=== PATIENT | male | born 1960 | race Caucasian/White ===

== ENCOUNTER → 2016-06-21 | Outpatient (CLI) | payer MEDICAID ==
[~2016-06-21] MED LIST: ASP81CT PO; ASPI-983 PO; ATOR40TA PO; BACL10TA PO; BUSP10TA95 PO; CALC500T7 PO; CARV25TA PO; CARV6.252; CEFU500T PO; CELE200C PO; CITA20TA12 PO; CITA20TA4 PO; CITA20TA7 PO; CITA40TA11; DOXY100C42 PO; FENO145T2 PO; FLUT12AE4 IH; GABA-488 PO; HYDR-1231 PO; HYDR-3816 PO; HYDR-757 PO; LEVO750T9 PO; LISI-552 PO; LISI-596 PO; LORA0.5T; METF500T4 PO; METF500T8 PO; METH4TAB PO; METH500T PO; MTF500T PO; OLAN10TA19 PO; OLAN10TA3 GT; OLAN20TA3 PO; OMEP10CA4 PO; OMEP20CA12 PO; PANT40SU PO; PRD20T PO; PREG100C; PREG150C PO; PREG50CA2; RT-ALBUINH IH; SIMV40TA4 PO; TIZA2CAP9 PO; TRAM-21 PO; TRAM50TA2 PO; TRAZ-144 PO; TRZ100T PO
--- OUTSIDE RECORDS SUMMARY | 2016-06-21 13:05 | XMS REPORT | Continuity of Care Document ---
Author Author [facility] Organization [facility] Address Unknown Phone Unavailable Care Team Providers Care Supervisor Dry Cleaning Name Role Phone NO, LOCAL PHYSICIAN PCP Unavailable Insurance Providers Payer Name Policy Number Subscriber Name Relationship Self Pay Santiago Collier 18 Self / Same As Patient Advance Directives Directive Response Recorded Date/Time Advance Directives No 08/15/14 11:38pm Health Care Power of Hop Sorter No 08/15/14 11:38pm Organ Donor No 08/15/14 11:38pm Resuscitation Status Full Code 08/15/14 11:38pm Chief Complaint and Reason for Visit Chief Complaint CHEST PAIN Reason for Visit Chest pain Problems Medical Problems Problem Onset Date Status Lumbar radiculopathy Unknown Active Chest pain Unknown Active Medications Medication Dose Route Sig Days/Qty Instructions Order Date Discontinued Date Status Metformin HCl (Glucophage) 500 Mg PO FOUR TIMES DAILY 05/18/1408/16 Discontinued Lisinopril 20 Mg PO DAILY 05/18/14 Active Fenofibrate 145 Mg PO DAILY 05/18/14 08/16/14 Discontinued Trazodone Hcl 100 Mg PO DAILY 05/18/14 08/16/14 Discontinued Olanzapine 10 Mg GT 05/18/14 08/16/14 Discontinued Omeprazole 20 Mg PO DAILY 30 Qty 05/18/14 08/16/14 Discontinued Celecoxib 200 Mg PO 05/18/14 08/16/14 Discontinued Citalopram Hydrobromide 20 Mg PO 05/18/14 08/16/14 Discontinued Prednisone 40 Mg PO DAILY 5 Days 05/18/14 08/15/14 Discontinued Hydrocodone Bit/Acetaminophen 1-2 Tab PO EVERY 6 HOURS PRN PAIN 20 Qty 05/18/14 08/15/14 Discontinued Tramadol Hcl 50 Mg PO EVERY 6 HOURS PRN PAIN 08/15/14 08/16/14 Discontinued Gabapentin 600 Mg PO THREE TIMES A DAY TAKES 2 (300MG) CAPSULES Active Metformin Hcl 1,000 Mg PO TWICE A DAY 08/16/14 Active Trazodone Hcl 150 Mg PO BEDTIME TAKES 1 & 1/2 (100MG) TABLET 08/16/14 Active Citalopram Hydrobromide 30 Mg PO DAILY 08/16/14 Active Tramadol Hcl 50 Mg PO EVERY 12 HOURS PRN PAIN 08/16/14 Active Olanzapine 5 Mg PO BEDTIME TAKES 1/2 (10MG) TABLET 08/16/14 Active Simvastatin 40 Mg PO BEDTIME 08/16/14 Active Social History Social History Problem Response Recorded Date/Time Alcohol Use Denies Use 08/15/2014 11:38pm Recreational Drug Use No 08/15/2014 11:38pm Recent Foreign Travel No 08/15/2014 11:38pm Recent Infectious Disease Exposure No 08/15/2014 11:38pm Hospitalization with Isolation Denies 08/16/2014 8:57pm Sexually Transmitted Disease No 08/15/2014 11:38pm HIV/AIDS No 08/15/2014 11:38pm Smoking Status Current Everyday Smoker 08/15/2014 11:38pm Do you dip or chew tobacco? No 08/15/2014 11:38pm Query Response Start Date Stop Date Smoking Status Current Everyday Smoker Hospital Discharge Instructions Patient Instructions Physician Instructions Goal/Follow Up Appt: You will have an outpatient stress test by Dr. Hsieh on 08-16-14. Arrive a little before 12:00. Nothing to eat or drink after midnight. No caffeine or nicotine for at least 12 hours. Follow up with Kristie Schultz APRN as outpatient in 1 week. Discharge Diet: ADA Diet, Low Fat/Low Cholesterol Plan of Care Discharge Date 08/16/14 4:15pm Disposition 01 HOME, SELF-CARE Instructions/Education Provided Chest Pain (DC) Cigarette Smoking and Its Health Risks (GEN) Forms Provided PDI Medical Prescriptions See Medications Section Referrals KRISTIE SCHULTZ [place] (Unspecified) 1 Week Address: [facility] [address] [address] Reason(s) for Referral: Please call and make an appointment in 1 week. Functional Status Query Response Date Recorded Comprehension Ability Understands Concepts August 16, 2014 9:00am Allergies, Adverse Reactions, Alerts Allergen Type Severity Reaction Status Last Updated NSAIDS (Non-Steroidal Anti-Inflammatory Drug) ([id number]) Allergy Unknown Active 05/18/14 Calcium Channel Blocking Agent Diltiazem Analogues ([id number]) Adverse Reaction Intermediate CHEST PAIN Active 08/16/14 Immunizations Name Given Type Hepatitis A No Historical Hepatitis B No Historical Tetanus Booster (TDap) Unknown Historical influenza, split (incl. purified surface antigen) 08/16/14 Administered pneumococcal polysaccharide PPV23 08/16/14 Administered influenza, split (incl. purified surface antigen) 08/16/14 Administered pneumococcal polysaccharide PPV23 08/16/14 Administered Vital Signs Acute Vital Signs Vital Response Date/Time Temperature (Fahrenheit) 98.1 degrees F (97.6 - 99.5) Temperature (Calculated Celsius) 36.25398 degrees C (36.4 - 37.5) Temperature Source Temporal Pulse Rate (adult) 80 bpm (60 - 90) Respiratory Rate 20 bpm (12 - 24) O2 Sat by Pulse Oximetry 96 % (88 - 100) Blood Pressure 163/111 mm Hg Pain Pain Intensity 7 Height (Feet) 5 feet Height (Inches) 10.00 inches Height (Calculated Centimeters) 177.964991 cm Weight (Pounds) 220 pounds Weight (Ounces) 0.0 oz Weight (Calculated Grams) 71170.322 gm Weight (Calculated Kilograms) 99.397151 kilograms Calculated BMI 31.56 Results Laboratory Results Test Name Result Units Flags Reference Collection Date/Time Result Date/ Time Comments White Blood Count 11.1 10^3/uL H 4.3-11.0 08/15/2014 10:00pm 08/15/2014 10:08pm Red Blood Count 5.18 10^6/uL 4.35-5.85 08/15/2014 10:00pm 08/15/2014 10 :08pm Hemoglobin 14.9 G/DL 13.3-17.7 08/15/2014 10:00pm 08/15/2014 10:08pm Hematocrit 44 % 40-54 08/15/2014 10:00pm 08/15/2014 10:08pm Mean Corpuscular Volume 85 FL 80-99 08/15/2014 10:00pm 08/15/2014 10: 08pm Mean Corpuscular Hemoglobin 29 PG 25-34 08/15/2014 10:00pm 08/15/2014 10:08pm Mean Corpuscular Hemoglobin Concent 34 G/DL 32-36 08/15/2014 10:00pm 10:08pm Red Cell Distribution Width 13.3 % 10.0-14.5 08/15/2014 10:00pm 2014 10:08pm Platelet Count 194 10^3/uL 130-400 08/15/2014 10:00pm 08/15/2014 10: 08pm Mean Platelet Volume 9.8 FL 7.4-10.4 08/15/2014 10:00pm 08/15/2014 10: 08pm Neutrophils (%) (Auto) 50 % 42-75 08/15/2014 10:00pm 08/15/2014 10: 08pm Lymphocytes (%) (Auto) 32 % 12-44 08/15/2014 10:00pm 08/15/2014 10: 08pm Monocytes (%) (Auto) 7 % 0-12 08/15/2014 10:00pm 08/15/2014 10:08pm Eosinophils (%) (Auto) 11 % H 0-10 08/15/2014 10:00pm 08/15/2014 10:08pm Basophils (%) (Auto) 0 % 0-10 08/15/2014 10:00pm 08/15/2014 10:08pm Neutrophils # (Auto) 5.5 X 10^3 1.8-7.8 08/15/2014 10:00pm 08/15/2014 10:08pm Lymphocytes # (Auto) 3.6 X 10^3 1.0-4.0 08/15/2014 10:00pm 08/15/2014 10:08pm Monocytes # (Auto) 0.8 X 10^3 0.0-1.0 08/15/2014 10:00pm 08/15/2014 10: 08pm Eosinophils # (Auto) 1.3 10^3/uL H 0.0-0.3 08/15/2014 10:00pm 08/15/2014 10:08pm Basophils # (Auto) 0.0 10^3/uL 0.0-0.1 08/15/2014 10:00pm 08/15/2014 10 :08pm Prothrombin Time 11.7 SEC L 12.2-14.7 08/15/2014 10:00pm 08/15/2014 10: 21pm INR Comment 0.9 0.8-1.4 08/15/2014 10:00pm 08/15/2014 10:21pm INTERPRETIVE DATA SUGGESTED THERAPEUTIC RANGE FOR INR'S: VENOUS THROMBOSIS, PULMONARY EMBOLISM, OR PREVENTION OF SYSTEMIC EMBOLISM (EG. IN ATRIAL FIBRILLATION): 2.0 - 3.0 MECHANICAL PROSTHETIC HEART VALVES: 2.5 - 3.5* *NOTE: INR'S UP TO 4.5 MAY BE NECESSARY IN SELECTED GROUPS OF HIGH RISK PATIENTS. [employer] CONSENSUS CONFERENCE ON ANTITHROMBOTIC THERAPY (2000). Activated Partial Thromboplast Time 56 SEC H 24-35 08/16/2014 9:40am 10:25am Sodium Level 140 MMOL/L 135-145 08/15/2014 10:00pm 08/15/2014 10:38pm Potassium Level 3.8 MMOL/L 3.6-5.0 08/15/2014 10:00pm 08/15/2014 10: 38pm Chloride Level 106 MMOL/L 98-107 08/15/2014 10:00pm 08/15/2014 10:38pm Carbon Dioxide Level 22 MMOL/L 21-32 08/15/2014 10:00pm 08/15/2014 10: 38pm Blood Urea Nitrogen 18 MG/DL 7-18 08/15/2014 10:00pm 08/15/2014 10: 38pm Creatinine 1.02 MG/DL 0.60-1.30 08/15/2014 10:00pm 08/15/2014 10:38pm BUN/Creatinine Ratio 18 08/15/2014 10:00pm 08/15/2014 10:38pm Estimat Glomerular Filtration Rate > 60 08/15/2014 10:00pm 2014 10:38pm GFR INTERPRETIVE DATA UNITS FOR ESTIMATED GFR (eGFR): mL/min/1.73 M2 REFERENCE RANGE FOR ESTIMATED GFR (eGFR) eGFR NORMAL eGFR >60 MODERATELY DECREASED eGFR 30-59 SEVERLY DECREASED eGFR 15-29 KIDNEY FAILURE <15 (OR DIALYSIS) Glucose Level 155 MG/DL H 70-105 08/15/2014 10:00pm 08/15/2014 10:38pm Glucometer 260 MG/DL H 70-110 08/16/2014 8:31am 08/16/2014 8:38am Calcium Level 9.5 MG/DL 8.5-10.1 08/15/2014 10:00pm 08/15/2014 10:38pm Magnesium Level 1.9 MG/DL 1.8-2.4 08/15/2014 10:00pm 08/15/2014 10: 38pm Total Bilirubin 0.3 MG/DL 0.1-1.0 08/15/2014 10:00pm 08/15/2014 10: 38pm Alkaline Phosphatase 79 U/L 40-136 08/15/2014 10:00pm 08/15/2014 10: 38pm Aspartate Amino Transf (AST/SGOT) 12 U/L 5-34 08/15/2014 10:00pm 2014 10:38pm Alanine Aminotransferase (ALT/SGPT) 21 U/L 0-55 08/15/2014 10:00pm 10:38pm Total Creatine Kinase 31 U/L 30-200 08/16/2014 9:40am 08/16/2014 10: 16am Creatine Kinase MB 0.6 NG/ML <6.6 08/16/2014 9:40am 08/16/2014 10:24am Troponin I < 0.30 NG/ML <0.30 08/16/2014 9:40am 08/16/2014 10:24am Troponin I < 0.30 NG/ML <0.30 08/15/2014 10:00pm 08/15/2014 10:38pm Myoglobin 20.2 NG/ML 10.0-92.0 08/15/2014 10:00pm 08/15/2014 10:38pm Total Protein 6.7 G/DL 6.4-8.2 08/15/2014 10:00pm 08/15/2014 10:38pm Albumin 4.0 G/DL 3.2-4.5 08/15/2014 10:00pm 08/15/2014 10:38pm Triglycerides Level 497 MG/DL H <150 08/16/2014 3:37am 08/16/2014 5:56am Cholesterol Level 181 MG/DL < 200 08/16/2014 3:37am 08/16/2014 5:56am HDL Cholesterol 29 MG/DL L 40-60 08/16/2014 3:37am 08/16/2014 5:56am LDL Cholesterol Direct 94 MG/DL 1-129 08/16/2014 3:37am 08/16/2014 5: 56am VLDL Cholesterol 99 MG/DL H 5-40 08/16/2014 3:37am 08/16/2014 5:56am Procedures Procedure Status Date Provider(s) Tracing only of electrocardiogram completed 08/15/14 SOPHIA GUNN MD Tracing only of electrocardiogram completed 08/16/14 AMOR MISHRA MD Tracing only of electrocardiogram completed 08/16/14 AMOR MISHRA MD Encounters Encounter Location Date/Time Discharged Inpatient Via [facility] 08/15/14 11:38pm Recent Diagnosis Chest pain
[2016-06-21 13:30] LABS: ANION GAP 10 MMOL/L (5-14); BLOOD UREA NITROGEN 17 MG/DL (7-18); BUN/CREATININE RATIO 18; CALCIUM 9.5 MG/DL (8.5-10.1); CARBON DIOXIDE 23 MMOL/L (21-32); CHLORIDE 103 MMOL/L (98-107); CREATININE SERUM 0.96 MG/DL (0.60-1.30); GFR ESTIMATED > 60; GLUCOSE 131 MG/DL (70-105); SODIUM 136 MMOL/L (135-145)
== END ==
LOC: LAB 13:00
PROVIDERS: ATTEND Nurse Practitioner Family
DX: I25.10 Atherosclerotic heart disease of native coronary artery without angina pectoris (principal); I25.5 Ischemic cardiomyopathy; I12.9 Hypertensive chronic kidney disease with stage 1 through stage 4 chronic kidney disease, or unspecified chronic kidney disease; N18.2 Chronic kidney disease, stage 2 (mild); E78.4 Other hyperlipidemia
CPT/HCPCS: 36415; 80048

== ENCOUNTER → 2016-11-29 | Outpatient (CLI) | payer MEDICAID ==
[2016-11-29 08:52] LABS: ALANINE AMINOTRANSFERASE 28 U/L (0-55); ALBUMIN 4.2 GM/DL (3.2-4.5); ANION GAP 8 MMOL/L (5-14); ASPARTATE AMINO TRANSFERASE 21 U/L (5-34); BILIRUBIN,TOTAL 0.5 MG/DL (0.1-1.0); BLOOD UREA NITROGEN 11 MG/DL (7-18); BUN/CREATININE RATIO 11; CALCIUM 9.7 MG/DL (8.5-10.1); CARBON DIOXIDE 27 MMOL/L (21-32); CHLORIDE 101 MMOL/L (98-107); CHOLESTEROL 187 MG/DL (< 200); DIRECT LDL 111 MG/DL (1-129); GFR ESTIMATED > 60; GLUCOSE 145 MG/DL (70-105); POTASSIUM 4.6 MMOL/L (3.6-5.0); SODIUM 136 MMOL/L (135-145); TOTAL PROTEIN 7.3 GM/DL (6.4-8.2); TRIGLYCERIDES 277 MG/DL (<150); VLDL CHOLESTEROL 55 MG/DL (5-40)
== END ==
LOC: LAB 08:19
PROVIDERS: ATTEND Nurse Practitioner Family
DX: I25.10 Atherosclerotic heart disease of native coronary artery without angina pectoris (principal); I25.5 Ischemic cardiomyopathy; I10 Essential (primary) hypertension; E78.4 Other hyperlipidemia
CPT/HCPCS: 36415; 80053; 80061

== ENCOUNTER 2017-04-15 10:43 | Emergency (ER) | payer MEDICARE, MEDICAID ==
[~2017-04-15] VITALS: Ht 177.8 cm; Wt 90.7 kg
--- OUTSIDE RECORDS SUMMARY | 2017-04-15 10:50 | XMS REPORT ---
Author Author MATTIE SOMERS Organization [employer] Address Unknown Phone Unavailable Care Team Providers Care Client Technologies Analyst Name Role Phone MATTIE SOMERS CP Unavailable Allergies No Known Allergies Problems Problem Type Condition Code Onset Dates Condition Status Problem Obesity, unspecified 278.00 Active Problem Routine general medical examination at health care facility V70.0 Active Problem Essential hypertension, benign 401.1 Active Problem Unspecified dental caries 521.00 Active Problem Lumbago 724.2 Active Problem Generalized osteoarthrosis, unspecified site 715.00 Active Problem Pain in joint, shoulder region 719.41 Active Problem Dizziness and giddiness 780.4 Active Problem Other and unspecified hyperlipidemia 272.4 Active Problem Diabetes mellitus without mention of complication, type II or unspecified type, not stated as uncontrolled 250.00 Active Problem Degeneration of lumbar or lumbosacral intervertebral disc 722.52 Active Problem Morbid obesity 278.01 Active Medications No Known Medications Results No Known Results Summary Purpose [employer] Submission
[2017-04-15] MEDS ORDERED: SIMV40TA4 (11:12)
[2017-04-15] MEDS ORDERED: PROVENTIL (11:12)
[2017-04-15] MEDS ORDERED: METF1000 (11:12)
--- NOTE | 2017-04-15 11:49 | Diagnostic Imaging Report ---
EXAM: CT head. TECHNIQUE: Noncontrast axial images of the brain were obtained. INDICATION: Headache with double vision. FINDINGS: There is no intracranial hemorrhage, edema or mass effect. The brain parenchyma appears unremarkable. No hydrocephalus. The visualized portions of the orbits and paranasal sinuses appear unremarkable except for a 1.3 cm right maxillary sinus mucous attention cyst. IMPRESSION: No acute process. Dictated by: Dictated on workstation # [id number]
--- NOTE | 2017-04-15 11:52 | ED Neurological Problem ---
General Chief Complaint: Eye Problems Stated Complaint: BLURRED,DOUBLE VISION Nursing Triage Note: BLURRED ET DOUBLE VISION SINCE ABOUT A WEEK AGO. STATES HAD H/A WITH BLURRED VISION. HX OF SEVERE MIGRAINE. CARDIAC HX. NO OTHER DEFICITS, NO WEAKNESS, NO NUMBNESS, NO VISUAL FIELD DEVIATION. Nursing Sepsis Screen: No Definite Risk Source: patient Exam Limitations: no limitations History of Present Illness Time seen by provider: 11:35 Initial Comments Here with complaint of vision changes over the last 5 days. Apparently this started with a severe headache 5 days ago that they're describing as a severe migraine that was associated with blurred vision, vomiting and diaphoresis. That did clear over time but the vision problems seems to have progressed. Now his eyes are crossing and he has decreased movement of the right eye. Denies recent injury. Does have fairly significant diabetes as well as heart failure. Timing/Duration: other (progressively worsening over the last 5 days) Severity: moderate Associated Symptoms: No confusion, No fever/chills, No loss of consciousness, No nausea/vomiting, No numbness in legs/feet, No seizures, No slurred speech, No trouble walking, vision changes Allergies and Home Medications Allergies Coded Allergies: NSAIDS (Non-Steroidal Anti-Inflamma (Unverified Allergy, Unknown, 05/18/14 ) Tricyclic Compounds (Verified Allergy, Unknown, 04/04/15) amitriptyline (Verified Allergy, Unknown, 04/04/15) trazodone (Verified Allergy, Unknown, 01/31/15) Calcium Channel Blocking Agent Dilt (Unverified Adverse Reaction, Intermediate, CHEST PAIN, 08/16/14) Home Medications Aspirin 81 Mg Tablet.dr, 81 MG PO DAILY, (Reported) Carvedilol 25 Mg Tablet, 25 MG PO BID, (Reported) Lisinopril 20 Mg Tablet, 20 MG PO BID, (Reported) Metformin HCl 1,000 Mg Tablet, (Reported) Simvastatin 40 Mg Tablet, (Reported) [Proventil] , (Reported) Constitutional: see HPI, No chills, No fever Eyes: See HPI, Denies Pain, Vision Changes, Other (double vision) Ears, Nose, Mouth, Throat: see HPI Respiratory: no symptoms reported Cardiovascular: no symptoms reported Gastrointestinal: No abdominal pain, No nausea, No vomiting Genitourinary: no symptoms reported Musculoskeletal: no symptoms reported Psychiatric/Neurological: See HPI All Other Systems Reviewed Negative Unless Noted: Yes Past Czkkvwu-Kujzfo-Cqknpr Hx Patient Social History Alcohol Use: Denies Use Recreational Drug Use: No Smoking Status: Current Everyday Smoker Type Used: Cigarettes Recent Foreign Travel: No Contact w/Someone Who Travel: No Recent Infectious Disease Expo: No Recent Hopitalizations: No Immunizations Up To Date Tetanus Booster (TDap): Unknown PED Vaccines UTD: Yes Seasonal Allergies Seasonal Allergies: No Surgeries History of Surgeries: Yes (TRIPLE BYPASS 08/14, low back surgery) Surgeries: Adenoidectomy, Cardiac, CABG, Defibrillator, Pacemaker, Tonsillectomy Respiratory History of Respiratory Disorde: Yes Respiratory Disorders: COPD Cardiovascular History of Cardiac Disorders: Yes Cardiac Disorders: Cardiomyopathy, Coronary Artery Disease, Heart Attack, High Cholesterol, Hypertension Neurological History of Neurological Disord: Yes Neurological Disorders: Headaches /Migraines, Neuropathy Reproductive System Hx Reproductive Disorders: No Sexually Transmitted Disease: No HIV/AIDS: No Genitourinary History of Genitourinary Disor: No Gastrointestinal History of Gastrointestinal Di: Yes Gastrointestinal Disorders: Gastroesophageal Reflux, Chronic Diarrhea Musculoskeletal History of Musculoskeletal Dis: Yes Musculoskeletal Disorders: Degenerate Disk Disease, Arthritis, Chronic Back Pain Endocrine History of Endocrine Disorders: Yes Endocrine Disorders: Diabetes, Non-Insulin dep HEENT Loss of Vision: Denies Hearing Impairment: Denies Cancer History of Cancer: No Psychosocial History of Psychiatric Problem: Yes Behavioral Health Disorders: Anxiety, Depression Integumentary History of Skin or Integumenta: No Blood Transfusions History of Blood Disorders: No Adverse Reaction to a Blood Tr: No Reviewed Nursing Assessment Reviewed/Agree w Nursing PMH: Yes Family Medical History Family Medial History: Myocardial infarction 18 FATHER G8 SISTER Physical Exam Vital Signs Vital Sign - Last 12Hours 04/15/17 11:06 Temp 98.2 Pulse 71 Resp 18 B/P (MAP) 163/95 Pulse Ox 96 O2 Delivery Room Air Capillary Refill : Less Than 3 Seconds General Appearance: WD/WN, no apparent distress HEENT: PERRL/EOMI, pharynx normal, other (pupils are equal and reactive bilaterally. Has eye movements in all directions except for right eye has decrease movement laterally which is isolated to this eye) Neck: full range of motion, supple Respiratory: lungs clear, normal breath sounds Cardiovascular: regular rate, rhythm, no murmur Peripheral Pulses: 2+ Dorsalis Pedis (R), 2+ Left Dors-Pedis (L), 2+ Radial Pulses (R), 2+ Radial Pulses (L) Gastrointestinal: non tender, soft Extremities: non-tender, normal inspection Neurologic/Psychiatric: alert, oriented x 3 Crainal Nerves: normal hearing, normal speech, abnormal eye position (right) Coordination/Gait: normal gait Motor/Sensory: no sensory deficit (which was) Skin: normal color, warm/dry Progress/Results/Core Measures Results/Orders Lab Results Laboratory Tests Test 04/15/17 11:44 04/15/17 12:06 Range/Units White Blood Count 9.4 4.3-11.0 10^3/uL Red Blood Count 6.11 H 4.35-5.85 10^6/uL Hemoglobin 17.3 13.3-17.7 G/DL Hematocrit 51 40-54 % Mean Corpuscular Volume 83 80-99 FL Mean Corpuscular Hemoglobin 28 25-34 PG Mean Corpuscular Hemoglobin Concent 34 32-36 G/DL Red Cell Distribution Width 13.6 10.0-14.5 % Platelet Count 193 130-400 10^3/uL Mean Platelet Volume 11.0 H 7.4-10.4 FL Neutrophils (%) (Auto) 50 42-75 % Lymphocytes (%) (Auto) 38 12-44 % Monocytes (%) (Auto) 8 0-12 % Eosinophils (%) (Auto) 5 0-10 % Basophils (%) (Auto) 0 0-10 % Neutrophils # (Auto) 4.7 1.8-7.8 X 10^3 Lymphocytes # (Auto) 3.6 1.0-4.0 X 10^3 Monocytes # (Auto) 0.7 0.0-1.0 X 10^3 Eosinophils # (Auto) 0.4 H 0.0-0.3 10^3/uL Basophils # (Auto) 0.0 0.0-0.1 10^3/uL Prothrombin Time 12.4 12.2-14.7 SEC INR Comment 0.9 0.8-1.4 Activated Partial Thromboplast Time 31 24-35 SEC D-Dimer 0.49 0.00-0.49 UG/ML Urine Color YELLOW Urine Clarity CLEAR Urine pH 6 5-9 Urine Specific [place] 1.010 L 1.016-1.022 Urine Protein 1+ H NEGATIVE Urine Glucose (UA) NEGATIVE NEGATIVE Urine Ketones NEGATIVE NEGATIVE Urine Nitrite NEGATIVE NEGATIVE Urine Bilirubin NEGATIVE NEGATIVE Urine Urobilinogen NORMAL NORMAL MG/DL Urine Leukocyte Esterase NEGATIVE NEGATIVE Urine RBC (Auto) NEGATIVE NEGATIVE Urine RBC NONE /HPF Urine WBC NONE /HPF Urine Squamous Epithelial Cells 0-2 /HPF Urine Crystals NONE /LPF Urine Bacteria NEGATIVE /HPF Urine Casts NONE /LPF Urine Mucus NEGATIVE /LPF Urine Culture Indicated NO Sodium Level 139 135-145 MMOL/L Potassium Level 4.2 3.6-5.0 MMOL/L Chloride Level 105 98-107 MMOL/L Carbon Dioxide Level 24 21-32 MMOL/L Anion Gap 10 5-14 MMOL/L Blood Urea Nitrogen 11 7-18 MG/DL Creatinine 1.01 0.60-1.30 MG/DL Estimat Glomerular Filtration Rate > 60 BUN/Creatinine Ratio 11 Glucose Level 157 H 70-105 MG/DL Calcium Level 10.1 8.5-10.1 MG/DL Total Bilirubin 0.5 0.1-1.0 MG/DL Aspartate Amino Transf (AST/SGOT) 17 5-34 U/L Alanine Aminotransferase (ALT/SGPT) 23 0-55 U/L Alkaline Phosphatase 110 40-136 U/L Troponin I < 0.30 <0.30 NG/ML Total Protein 7.7 6.4-8.2 GM/DL Albumin 4.5 3.2-4.5 GM/DL Glucometer 140 H 70-110 MG/DL My Orders Orders - AUBREE MONTERO MD Cbc With Automated Diff (04/15/17 11:28) Protime With Inr (04/15/17 11:28) Partial Thromboplastin Time (04/15/17 11:28) Comprehensive Metabolic Panel (04/15/17 11:28) Fibrin Degradation Products (04/15/17 11:28) Troponin I (04/15/17 11:28) Ua Culture If Indicated (04/15/17 11:28) Chest 1 View, Ap/Pa Only (04/15/17 11:28) Ekg Tracing (04/15/17 11:28) Nothing By Mouth (04/15/17 Dinner) Accucheck Stat ONCE (04/15/17 11:28) Saline Lock/Iv-Start (04/15/17 11:28) Vital Signs - Stroke Q15M (04/15/17 11:28) Ct Head Wo-R/O Stroke (04/15/17 11:28) O2 (04/15/17 11:28) Intake & Output 06,14,22 (04/15/17 11:28) Monitor-Rhythm Ecg Trace Only (04/15/17 11:28) Dysphagia Screening Tool (04/15/17 11:28) Ct Angio Head/Neck (04/15/17 14:06) Hs C Reactive Protein (04/15/17 16:09) Erythrocyte Sedimentation Rate (04/15/17 16:09) Medications Given in ED Current Medications Medications Dose Ordered Sig/Myrna Route Start Time Stop Time Status Last Admin Dose Admin Iohexol 100 ml ONCE ONCE IV 04/15/17 14:15 04/15/17 14:16 DC 04/15/17 14:50 80 ML Sodium Chloride 100 ml ONCE ONCE IV 04/15/17 14:15 04/15/17 14:16 DC 04/15/17 14:50 80 ML Vital Signs/I&O Vital Sign - Last 12Hours 04/15/17 11:06 Temp 98.2 Pulse 71 Resp 18 B/P (MAP) 163/95 Pulse Ox 96 O2 Delivery Room Air Blood Pressure Mean: 117 Progress Note : Progress Note Seen and evaluated. Rapid CT assessment of the head. Patient's symptoms are way outside of the TPA window. We will do a stroke workup. Patient does have concerns for cranial nerves palsy on the right with decrease lateral rectus muscle movement of the eye on the right. Seems to be isolated to this area. Currently without headache or vomiting symptoms. Gait is steady and walks without assistance. Anticipate CT head with contrast after evaluation of serum creatinine. Unable to do MRI scan due to patient has difficulty later pacemaker and this will require company ref as well as cardiology assistance. I did discuss the case with the radiologist. He is recommending CT angiogram of the head and neck as an alternative. This was ordered. Pending evaluation. 1620: CT angiogram of the head and neck were complete. No acute findings on this. I did discuss the case with the stroke team at 1604. We reviewed the case and current symptoms. This may be related to diabetes that is concerning given the headache at onset. Patient does appear to have 6 cranial nerve palsy on the right. I did discuss the case with the patient's primary care physician Dr. Enriquez at the [facility] in [facility]. Neurology is recommending MRI. The patient will be available to get this but will require some coordination of care to get the pacemaker defibrillator rep to assist with management of the device during the MRI as well as cardiology approval. Dr. Enriquez and his staff will assist in getting this. We will patch the left eye to prevent the double vision. Patient was instructed that he can switch the patch to the other eye for comfort as needed. Discharged home with return precautions. Patient and his verbalize understanding instructions and agreement with plan. ECG Initial ECG Impression Date: Apr 15, 2017 Initial ECG Impression Time: 11:53 Initial ECG Rate: 68 Initial ECG Rhythm: Normal Sinus Comment Sinus rhythm with left axis deviation. No evidence of ST elevation [place]. Similar to previous of 05 April 2015. Interpreted by me. Diagnostic Imaging Diagonstic Imaging: CT Plain Films/CT/US/NM/MRI: head Comments NAME: FROYLAN GUERRA [employer] REC#: [id number] PT STATUS: REG ER : 1960 PHYSICIAN: AUBREE MONTERO MD ADMIT DATE: 04/15/17/ER Signed Date of Exam: 04/15/17 CT HEAD WO-R/O STROKE EXAM: CT head. TECHNIQUE: Noncontrast axial images of the brain were obtained. INDICATION: Headache with double vision. FINDINGS: There is no intracranial hemorrhage, edema or mass effect. The brain parenchyma appears unremarkable. No hydrocephalus. The visualized portions of the orbits and paranasal sinuses appear unremarkable except for a 1.3 cm right maxillary sinus mucous attention cyst. IMPRESSION: No acute process. Dictated by: Dictated on workstation # [id number] Dict: 04/15/17 1145 Trans: 04/15/17 1147 Interpreted by: ASHU MACIAS MD Electronically signed by: ASHU MACIAS MD 04/15/17 1147 Reviewed: Reviewed by Me Diagonstic Imaging: CT Plain Films/CT/US/NM/MRI: head Comments VIA [facility]. [place], [place] NAME: FROYLAN GUERRA [employer] REC#: [id number] PT STATUS: REG ER : 1960 PHYSICIAN: AUBREE MONTERO MD ADMIT DATE: 04/15/17/ER Draft Date of Exam:04/15/17 CT ANGIO HEAD/NECK PROCEDURE: CT angiography of the head and CT angiography of the neck with and without contrast. TECHNIQUE: Contiguous noncontrast images were obtained from the skull base through the vertex. After intravenous contrast administration, helical CT angiography of the neck was performed. Source data was reformatted into multiple MIP projections. Delayed post contrast acquisition was also obtained. INDICATION: Double vision, indwelling pacemaker precludes MRI. CT ANGIOGRAM NECK: The right vertebral artery is very small throughout its length and appears to terminate as the PICA, the left the dominant vessel and showed proximal mixed soft and hard plaque narrowing its proximal lumen by less than 50%. The bilateral common carotid arteries, the carotid bifurcations and bulbs were patent. The cervical internal carotid arteries revealed no hemodynamically significant stenosis or substantial plaque burden. There was no evidence for dissection. CT ANGIOGRAM HEAD: There is a large left PCOM with origin of the left posterior cerebral artery. The right GERIC[employer] AIDE TEACHER is off the basilar. G[employer] AIDE TEACHER segments bilaterally are well opacified and patent. The intracranial ICAs were patent. The bilateral A1 segments of the ACOM and the paired anterior cerebral arteries appeared unremarkable. Bilateral middle cerebral arterial segments and primary cortical branches appeared patent. There was no large vessel occlusion and no intraluminal thrombus, aneurysm, vascular malformation or branch occlusion identified. IMPRESSION: CT ANGIOGRAM NECK: Dominant left vertebral with moderate stenosis at its proximal aspect. Small caliber right vertebral diffusely terminates as the PICA. The cervical carotid is widely patent. CT ANGIOGRAM HEAD: No hemodynamically significant stenosis, large vessel occlusion, aneurysm or vascular malformation. origin of the left patent posterior cerebral artery. Dictated on workstation # [id number] Dict: 04/15/17 1514 Trans: 04/15/17 1532 [facility] [phone] Interpreted by: JASMINE SULTANA Electronically signed by: Diagonstic Imaging: Xray Plain Films/CT/US/NM/MRI: chest Comments NAME: FROYLAN GUERRA [facility] REC#: [id number] PT STATUS: REG ER : 1960 PHYSICIAN: AUBREE MONTERO MD ADMIT DATE: 04/15/17/ER Signed Date of Exam: 04/15/17 CHEST 1 VIEW, AP/PA ONLY EXAMINATION: Portable upright radiograph of the chest. INDICATION: Blurred vision. FINDINGS: The lungs are clear. The heart size is normal. No effusion or pneumothorax. The mediastinum and jonas appear unremarkable. There is a pacemaker with a single cardiac lead seen. Sternotomy wires are noted. Surgical clips in the upright abdomen seen. IMPRESSION: No acute process. Dictated by: Dictated on workstation # [id number] Dict: 04/15/17 1227 Trans: 04/15/17 1426 Interpreted by: ASHU MACIAS MD Electronically signed by: ASHU MACIAS MD 04/15/17 1426 Departure Impression Impression: Primary Impression: Sixth cranial nerve palsy on examination, right Disposition: 01 HOME, SELF-CARE Condition: Stable Departure-Patient Inst. Decision time for Depature: 16:28 Referrals: NO,LOCAL PHYSICIAN (PCP/Family) Primary Care Physician Patient Instructions: Double Vision (DC) Add. Discharge Instructions: All discharge instructions reviewed with patient and/or family. Voiced understanding. Continue home medications as directed. Follow-up with your doctor tomorrow for recheck and further evaluation. Call his office in the morning. You will need MRI and they will assist with that. You may use the patch over the left eye or the right eye. You may switch it for comfort. Return for worse pain, fever, vomiting, weakness, breathing problems or other concerns as needed. AUBREE MONTERO MD Apr 15, 2017 11:52
[2017-04-15 12:00] LABS: BASOPHILS % (AUTO) 0 % (0-10); EOSINOPHILS # (AUTO) 0.4 10^3/uL (0.0-0.3); EOSINOPHILS % (AUTO) 5 % (0-10); LYMPHOCYTES # (AUTO) 3.6 X 10^3 (1.0-4.0); LYMPHOCYTES % (AUTO) 38 % (12-44); MEAN CORPUSCULAR HEMOGLOBIN 28 PG (25-34); MEAN CORPUSCULAR HGB CONC 34 G/DL (32-36); MEAN CORPUSCULAR VOLUME 83 FL (80-99); MONOCYTES # (AUTO) 0.7 X 10^3 (0.0-1.0); MONOCYTES % (AUTO) 8 % (0-12); NEUTROPHILS # (AUTO) 4.7 X 10^3 (1.8-7.8); NEUTROPHILS % (AUTO) 50 % (42-75); PLATELET COUNT 193 10^3/uL (130-400); RED BLOOD COUNT 6.11 10^6/uL (4.35-5.85); RED CELL DISTRIBUTION WIDTH 13.6 % (10.0-14.5); WHITE BLOOD COUNT 9.4 10^3/uL (4.3-11.0)
[2017-04-15 12:01] LABS: BILIRUBIN,URINE NEGATIVE (NEGATIVE); KETONES,URINE NEGATIVE (NEGATIVE); LEUKOCYTE ESTERASE ,URINE NEGATIVE (NEGATIVE); NITRITE,URINE NEGATIVE (NEGATIVE); PH,URINE 6 (5-9); PROTEIN,URINE 1+ (NEGATIVE); UROBILINOGEN,URINE NORMAL (NORMAL)
[2017-04-15 12:17] LABS: INR 0.9 (0.8-1.4); PROTHROMBIN TIME PATIENT 12.4 SEC (12.2-14.7)
[2017-04-15 12:25] LABS: ALANINE AMINOTRANSFERASE 23 U/L (0-55); ALBUMIN 4.5 GM/DL (3.2-4.5); ANION GAP 10 MMOL/L (5-14); ASPARTATE AMINO TRANSFERASE 17 U/L (5-34); BILIRUBIN,TOTAL 0.5 MG/DL (0.1-1.0); BLOOD UREA NITROGEN 11 MG/DL (7-18); BUN/CREATININE RATIO 11; CALCIUM 10.1 MG/DL (8.5-10.1); CARBON DIOXIDE 24 MMOL/L (21-32); CHLORIDE 105 MMOL/L (98-107); CREATININE SERUM 1.01 MG/DL (0.60-1.30); GFR ESTIMATED > 60; GLUCOSE 157 MG/DL (70-105); POTASSIUM 4.2 MMOL/L (3.6-5.0); SODIUM 139 MMOL/L (135-145); SQUAMOUS EPITHELIAL CELL,UR 0-2 /HPF; TOTAL PROTEIN 7.7 GM/DL (6.4-8.2)
--- NOTE | 2017-04-15 12:30 | Diagnostic Imaging Report ---
EXAMINATION: Portable upright radiograph of the chest. INDICATION: Blurred vision. FINDINGS: The lungs are clear. The heart size is normal. No effusion or pneumothorax. The mediastinum and jonas appear unremarkable. There is a pacemaker with a single cardiac lead seen. Sternotomy wires are noted. Surgical clips in the upright abdomen seen. IMPRESSION: No acute process. Dictated by: Dictated on workstation # [id number]
[2017-04-15 12:31] LABS: TROPONIN I < 0.30 NG/ML (<0.30)
[2017-04-15] MEDS ORDERED: IOHEXOL 350 MG/ML 100 ML (OMNIPAQUE 350) VIAL IV ONE (14:15)
[2017-04-15] MEDS ORDERED: NS 100 ML (IVPB) BAG IV ONE (14:15)
--- NOTE | 2017-04-15 15:32 | Diagnostic Imaging Report ---
PROCEDURE: CT angiography of the head and CT angiography of the neck with and without contrast. TECHNIQUE: Contiguous noncontrast images were obtained from the skull base through the vertex. After intravenous contrast administration, helical CT angiography of the neck was performed. Source data was reformatted into multiple MIP projections. Delayed post contrast acquisition was also obtained. INDICATION: Double vision, indwelling pacemaker precludes MRI. CT ANGIOGRAM NECK: The right vertebral artery is very small throughout its length and appears to terminate as the PICA, the left the dominant vessel and showed proximal mixed soft and hard plaque narrowing its proximal lumen by less than 50%. The bilateral common carotid arteries, the carotid bifurcations and bulbs were patent. The cervical internal carotid arteries revealed no hemodynamically significant stenosis or substantial plaque burden. There was no evidence for dissection. CT ANGIOGRAM HEAD: There is a large left PCOM with origin of the left posterior cerebral artery. The right DOBBY LOOM CHAIN PEGGER is off the basilar. DOBBY LOOM CHAIN PEGGER segments bilaterally are well opacified and patent. The intracranial ICAs were patent. The bilateral A1 segments of the ACOM and the paired anterior cerebral arteries appeared unremarkable. Bilateral middle cerebral arterial segments and primary cortical branches appeared patent. There was no large vessel occlusion and no intraluminal thrombus, aneurysm, vascular malformation or branch occlusion identified. IMPRESSION: CT ANGIOGRAM NECK: Dominant left vertebral with moderate stenosis at its proximal aspect. Small caliber right vertebral diffusely terminates as the PICA. The cervical carotid is widely patent. CT ANGIOGRAM HEAD: No hemodynamically significant stenosis, large vessel occlusion, aneurysm or vascular malformation. origin of the left patent posterior cerebral artery. Dictated by: Dictated on workstation # [id number]
[2017-04-15 16:50] VITALS: BP 183/102
== END 2017-04-15 16:52 | disposition home or self-care (01) ==
LOC: EDUNIT# 10:43 → ER 10:45
DX: H49.21 Sixth [abducent] nerve palsy, right eye (principal); G43.909 Migraine, unspecified, not intractable, without status migrainosus; J44.9 Chronic obstructive pulmonary disease, unspecified; I42.9 Cardiomyopathy, unspecified; I25.10 Atherosclerotic heart disease of native coronary artery without angina pectoris; I25.2 Old myocardial infarction; E78.00 Pure hypercholesterolemia, unspecified; I10 Essential (primary) hypertension; K21.9 Gastro-esophageal reflux disease without esophagitis; E11.40 Type 2 diabetes mellitus with diabetic neuropathy, unspecified; F41.9 Anxiety disorder, unspecified; F32.9 Major depressive disorder, single episode, unspecified; M19.90 Unspecified osteoarthritis, unspecified site; F17.210 Nicotine dependence, cigarettes, uncomplicated; Z95.810 Presence of automatic (implantable) cardiac defibrillator; Z90.89 Acquired absence of other organs; Z82.49 Family history of ischemic heart disease and other diseases of the circulatory system; Z87.19 Personal history of other diseases of the digestive system; Z95.1 Presence of aortocoronary bypass graft; Z79.82 Long term (current) use of aspirin; Z79.84 Long term (current) use of oral hypoglycemic drugs
CPT/HCPCS: 36415; 70450; 70496; 70498; 71010; 80053; 81000; 82962; 84484; 85025; 85379; 85610; 85652; 85730; 86141; 93005; 93041

== ENCOUNTER → 2018-02-19 | Outpatient (CLI) | payer MEDICAID, MEDICARE ==
[~2018-02-19] MED LIST changes: -CITA20TA7 PO; +CITA20TA9 PO; +HYDR-34 PO; -HYDR-3816 PO; +HYDR-4226 PO; -HYDR-757 PO; +METF-397 PO; +METF-399; -METF500T4 PO; +PROVENTIL; +SIMV40TA4
[2018-02-19 12:47] LABS: BASOPHILS % (AUTO) 0 % (0-10); EOSINOPHILS # (AUTO) 0.4 10^3/uL (0.0-0.3); EOSINOPHILS % (AUTO) 4 % (0-10); HEMATOCRIT 44 % (40-54); HEMOGLOBIN 15.9 G/DL (13.3-17.7); LYMPHOCYTES # (AUTO) 3.9 X 10^3 (1.0-4.0); LYMPHOCYTES % (AUTO) 41 % (12-44); MEAN CORPUSCULAR HEMOGLOBIN 30 PG (25-34); MEAN CORPUSCULAR HGB CONC 36 G/DL (32-36); MEAN CORPUSCULAR VOLUME 84 FL (80-99); MEAN PLATELET VOLUME 10.5 FL (7.4-10.4); MONOCYTES # (AUTO) 0.6 X 10^3 (0.0-1.0); MONOCYTES % (AUTO) 6 % (0-12); NEUTROPHILS # (AUTO) 4.6 X 10^3 (1.8-7.8); NEUTROPHILS % (AUTO) 48 % (42-75); PLATELET COUNT 204 10^3/uL (130-400); RED BLOOD COUNT 5.24 10^6/uL (4.35-5.85); RED CELL DISTRIBUTION WIDTH 13.1 % (10.0-14.5); WHITE BLOOD COUNT 9.5 10^3/uL (4.3-11.0)
[2018-02-19 13:08] LABS: ALBUMIN 4.2 GM/DL (3.2-4.5); BILIRUBIN,TOTAL 0.4 MG/DL (0.1-1.0); CALCIUM 9.8 MG/DL (8.5-10.1); CREATININE SERUM 1.32 MG/DL (0.60-1.30); MAGNESIUM 1.6 MG/DL (1.8-2.4); POTASSIUM 3.9 MMOL/L (3.6-5.0); TOTAL PROTEIN 6.9 GM/DL (6.4-8.2)
== END ==
LOC: LAB 12:30
PROVIDERS: ATTEND Nurse Practitioner Family
DX: I10 Essential (primary) hypertension (principal)
CPT/HCPCS: 36415; 80053; 83735; 84443; 85025